=== PATIENT | female | born 1960 | race Caucasian/White ===

== ENCOUNTER 2018-03-03 09:10 | Outpatient (CLI) | payer BC ==
--- NOTE | 2018-03-06 18:11 | MMO ---
SCREENING MAMMOGRAPHY 03/03/18 COMPARISON: 02/02/16 and 10/12/13. HISTORY: Screening mammogram. FINDINGS: The patient's mammogram is interpreted with the assistance of computer aided detection. Scattered fibroglandular density present. Benign calcification noted bilaterally. No dominant mass, a rchitectural distortion. No concerning microcalcification. IMPRESSION: BIRADS 2: Benign Finding(s) Routine annual screening mammography (for women over age 40). POS: NADEGE
== END 2018-03-03 09:11 | disposition home or self-care (01) ==
LOC: SCSMAMMO 09:10
PROVIDERS: ATTEND Family Medicine
DX: Z12.31 Encounter for screening mammogram for malignant neoplasm of breast (principal)
CPT/HCPCS: 77067